=== PATIENT | male | born 1955 | race Caucasian/White ===

== ENCOUNTER → 2017-07-05 | Outpatient (CLI) | payer BC ==
[2016-06-13 22:00] VITALS: BP 131/89
[~2017-07-05] MED LIST: AFRIN PUMPMIST15 ML NS; LISINOPRIL5 MG PO; PRADAXA75 MG PO; PREDNISONE20 M1 PO; TRANSDERM0.33 MG/24 TD; XARELTO10 MG PO
[2017-07-05 10:12] LABS: HEMATOCRIT 41.2 % (42.0-52.0); HEMOGLOBIN 13.2 g/dL (13.5-18.0); MEAN PLATELET VOLUME 9.4 fl (7.4-10.4); RED BLOOD COUNT 4.39 M/mm3 (4.20-5.60); RED CELL DISTRIBUTION WIDTH 13.3 % (11.5-14.5); WHITE BLOOD COUNT 8.8 K/mm3 (4.8-10.8)
[2017-07-05 10:25] LABS: ALBUMIN 4.1 g/dL (3.5-5.0); BUN/CREATININE RATIO 18.4 (6.0-26.0); CALCIUM 9.2 mg/dL (8.4-10.2); POTASSIUM 4.4 mmol/L (3.6-5.0); TOTAL BILIRUBIN 1.3 mg/dL (0.2-1.3)
== END ==
LOC: RAD 09:49
PROVIDERS: Family Medicine
DX: K76.0 Fatty (change of) liver, not elsewhere classified (principal); K44.9 Diaphragmatic hernia without obstruction or gangrene; M62.89 Other specified disorders of muscle; E66.9 Obesity, unspecified
CPT/HCPCS: Q9967

== ENCOUNTER → 2017-08-28 | Outpatient (CLI) | payer BC ==
[2016-06-13 22:00] VITALS: BP 131/89
[2017-08-28 09:13] LABS: HEMATOCRIT 38.5 % (42.0-52.0); HEMOGLOBIN 12.3 g/dL (13.5-18.0); MEAN CELL VOLUME 92 fl (78-100); MEAN CORPUSCULAR HEMOGLOBIN 29 pg (27-31); MEAN CORPUSCULAR HGB CONC 32 g/dL (33-37); MEAN PLATELET VOLUME 9.4 fl (7.4-10.4); PLATELET COUNT 256 K/mm3 (130-400); RED BLOOD COUNT 4.18 M/mm3 (4.20-5.60); RED CELL DISTRIBUTION WIDTH 13.1 % (11.5-14.5); WHITE BLOOD COUNT 7.7 K/mm3 (4.8-10.8)
[2017-08-28 09:35] LABS: BAND 0 % (0-10); LYMPHOCYTE 25 % (20-51); MONOCYTE 10 % (3-10); NEUTROPHILS 63 % (42-75)
== END ==
LOC: LAB 09:04
PROVIDERS: Family Medicine
DX: R19.04 Left lower quadrant abdominal swelling, mass and lump (principal)

== ENCOUNTER → 2017-09-06 | Outpatient (CLI) | payer BC ==
[2016-06-13 22:00] VITALS: BP 131/89
== END ==
LOC: RAD 10:26
DX: R19.04 Left lower quadrant abdominal swelling, mass and lump (principal); K76.9 Liver disease, unspecified; K44.9 Diaphragmatic hernia without obstruction or gangrene; Z98.84 Bariatric surgery status; N26.1 Atrophy of kidney (terminal)
CPT/HCPCS: Q9967

== ENCOUNTER → 2018-05-09 | Outpatient (CLI) | payer BC ==
[2016-06-13 22:00] VITALS: BP 131/89
== END ==
LOC: RAD 09:06
DX: R91.8 Other nonspecific abnormal finding of lung field (principal); J98.4 Other disorders of lung; Z98.890 Other specified postprocedural states; Z95.0 Presence of cardiac pacemaker

== ENCOUNTER → 2018-06-20 | Outpatient (CLI) | payer BC ==
[2016-06-13 22:00] VITALS: BP 131/89
== END ==
LOC: RAD 10:13
DX: N63.31 Unspecified lump in axillary tail of the right breast (principal); Z92.21 Personal history of antineoplastic chemotherapy

== ENCOUNTER → 2018-08-08 | Outpatient (CLI) | payer BC ==
[2016-06-13 22:00] VITALS: BP 131/89
[2018-08-08 11:04] LABS: HEMATOCRIT 32.5 % (42.0-52.0); HEMOGLOBIN 10.4 g/dL (13.5-18.0); MEAN CELL VOLUME 99 fl (78-100); MEAN CORPUSCULAR HEMOGLOBIN 32 pg (27-31); MEAN CORPUSCULAR HGB CONC 32 g/dL (33-37); MEAN PLATELET VOLUME 8.6 fl (7.4-10.4); PLATELET COUNT 187 K/mm3 (130-400); RED BLOOD COUNT 3.29 M/mm3 (4.20-5.60)
[2018-08-08 11:31] LABS: BAND 1 % (0-10); LYMPHOCYTE 14 % (20-51); MONOCYTE 12 % (3-10); NEUTROPHILS 70 % (42-75)
[2018-08-08 11:51] LABS: ALBUMIN 4.2 g/dL (3.5-5.0); CALCIUM 9.2 mg/dL (8.4-10.2); POTASSIUM 3.8 mmol/L (3.6-5.0); TOTAL BILIRUBIN 1.1 mg/dL (0.2-1.3); TOTAL PROTEIN 6.9 g/dL (6.3-8.2)
== END ==
LOC: LAB 10:51
PROVIDERS: Family Medicine
DX: C49.9 Malignant neoplasm of connective and soft tissue, unspecified (principal); D63.0 Anemia in neoplastic disease

== ENCOUNTER → 2018-11-23 | Outpatient (CLI) | payer BC ==
[2016-06-13 22:00] VITALS: BP 131/89
[2018-11-23 22:55] LABS: TESTOSTERONE 371 ng/dL (221-716)
== END ==
LOC: LAB 09:10
PROVIDERS: Family Medicine
DX: R97.20 Elevated prostate specific antigen [PSA] (principal); Z86.39 Personal history of other endocrine, nutritional and metabolic disease

== ENCOUNTER → 2019-01-10 | Outpatient (CLI) | payer BC ==
[2016-06-13 22:00] VITALS: BP 131/89
[2019-01-10 15:24] LABS: ALBUMIN 3.6 g/dL (3.4-4.8); CALCIUM 9.4 mg/dL (8.3-10.5); POTASSIUM 3.5 mmol/L (3.5-5.1); TOTAL BILIRUBIN 0.8 mg/dL (0.2-1.2); TOTAL PROTEIN 6.6 g/dL (6.2-8.1)
[2019-01-10 15:34] LABS: HEMATOCRIT 36.1 % (42.0-52.0); HEMOGLOBIN 11.2 g/dL (13.5-18.0); MEAN CELL VOLUME 94 fl (78-100); MEAN CORPUSCULAR HEMOGLOBIN 29 pg (27-31); MEAN CORPUSCULAR HGB CONC 31 g/dL (33-37); MEAN PLATELET VOLUME 9.3 fl (7.4-10.4); PLATELET COUNT 222 K/mm3 (130-400); RED BLOOD COUNT 3.83 M/mm3 (4.20-5.60); RED CELL DISTRIBUTION WIDTH 14.2 % (11.5-14.5); WHITE BLOOD COUNT 8.4 K/mm3 (4.8-10.8)
[2019-01-10 16:42] LABS: LYMPHOCYTE 10 % (20-51); MONOCYTE 12 % (3-10); NEUTROPHILS 77 % (42-75)
== END ==
LOC: LAB 14:46
PROVIDERS: Family Medicine
DX: C78.00 Secondary malignant neoplasm of unspecified lung (principal)

== ENCOUNTER → 2019-04-19 | Outpatient (CLI) | payer BC ==
[2016-06-13 22:00] VITALS: BP 131/89
[2019-04-19 12:01] LABS: HEMATOCRIT 35.9 % (42.0-52.0); HEMOGLOBIN 11.1 g/dL (13.5-18.0); MEAN PLATELET VOLUME 9.2 fl (7.4-10.4); RED BLOOD COUNT 3.95 M/mm3 (4.20-5.60); RED CELL DISTRIBUTION WIDTH 19.9 % (11.5-14.5); WHITE BLOOD COUNT 7.5 K/mm3 (4.8-10.8)
== END ==
LOC: LAB 11:46
PROVIDERS: Family Medicine
DX: D64.9 Anemia, unspecified (principal)